=== PATIENT | male | born 1965 | race Caucasian/White ===

== ENCOUNTER 2020-04-08 10:53 | Emergency (ER) | payer BC, OTHER ==
[~2020-04-08] VITALS: Ht 172.7 cm; Wt 105.3 kg
[2020-04-08] MEDS ORDERED: RT-ALBUINH IH (11:30)
[2020-04-08] MEDS ORDERED: DEXA6TAB PO (11:30)
[2020-04-08] MEDS ORDERED: IVER3TAB2 PO (11:30)
--- NOTE | 2020-04-08 11:33 | ED Cough/URI ---
General Chief Complaint: Respiratory Problems Stated Complaint: SOB; COVID+ Nursing Triage Note: Patient reports COVID positive since rapid test by employer at [facility] last Monday. Sx: loss of taste/smell, diarrhea, fatigue, and cough. Pt feels deep breathing increasing his cough x 2 days with sats decreasing today to low 90's. Sepsis Screen: No Definite Risk History of Present Illness Date Seen by Provider: Apr 08, 2020 Time Seen by Provider: 11:20 Initial Comments 54-year-old male presents with complaint of cough and intermittent shortness of air. History of present illness, patient began to feel sick one week ago with body aches, chills and 5 days ago was tested for COVID-19 and has been on home quarantine since then. Is not on any medication and has not seen a doctor. States that when he takes a deep breath he has a sensation that he has to cough. Denies history of lung or heart disease. Some intermittent nausea and some loose stools, no fever. Allergies and Home Medications Allergies Coded Allergies: metoclopramide (Unverified Adverse Reaction, Intermediate, heart palpitation, 04/08/20) Home Medications Albuterol Sulfate 1 Puff Puff, 2 PUFF IH Q4H 1 PUFF = 90 MCG Prescribed by: SILKE TURCIOS on 04/08/20 1130 Dexamethasone 6 Mg Tablet, 6 MG PO DAILY Prescribed by: SILKE TURCIOS on 04/08/20 1130 Ivermectin 3 Mg Tablet, 3 MG PO PD take 7 tablets po today, then 7 tablets po in 3 days Prescribed by: SILKE TURCIOS on 04/08/20 1130 Patient Home Medication List Home Medication List Reviewed: Yes Review of Systems Review of Systems Constitutional: No chills, No dizziness, No fever; malaise EENTM: no symptoms reported Respiratory: cough; No hemoptysis, No orthopnea, No phlegm; short of breath; No stridor, No wheezing Cardiovascular: No chest pain, No edema, No palpitations, No syncope Gastrointestinal: No abdominal pain, No constipation; diarrhea; No loss of appetite; nausea; No vomiting Musculoskeletal: No back pain, No joint pain, No muscle pain, No muscle stiffness, No muscle cramps Skin: No change in color, No lesions Past Hkmazzq-Hviqco-Qztiba Hx Past Med/Social Hx: Reviewed Nursing Past Med/Soc Hx Patient Social History Alcohol Use: Denies Use Recreational Drug Use: No Smoking Status: Never a Smoker 2nd Hand Smoke Exposure: No Recent Foreign Travel: No Contact w/Someone Who Travel: No Recent Infectious Disease Expo: No Recent Hopitalizations: No Immunizations Up To Date Date of Influenza Vaccine: Jan 09, 2020 Seasonal Allergies Seasonal Allergies: No Past Medical History Surgeries: No Respiratory: No Cardiac: Yes High Cholesterol, Hypertension Neurological: No Genitourinary: Yes Benign Prostatic Hyperpl Gastrointestinal: No Musculoskeletal: No Endocrine: Yes Hypothyroidsim HEENT: No Cancer: No Psychosocial: No Integumentary: No Blood Disorders: No Physical Exam Vital Signs - First Documented 04/08/20 11:00 Temp 36.3 Pulse 100 Resp 20 B/P (MAP) 159/90 (113) Pulse Ox 92 O2 Delivery Room Air Capillary Refill : Less Than 3 Seconds Height: '" Weight: lbs. oz. kg; 35.00 BMI Method: General Appearance: WD/WN, no apparent distress HEENT: PERRL/EOMI, normal ENT inspection Neck: non-tender, supple Respiratory: chest non-tender, lungs clear, normal breath sounds Cardiovascular: regular rate, rhythm, no edema, no gallop, no JVD Gastrointestinal: non tender, soft Extremities: non-tender, no pedal edema Neurologic/Psychiatric: no motor/sensory deficits, alert, normal mood/affect, oriented x 3 Skin: normal color, warm/dry Progress/Results/Core Measures Suspected Sepsis Recent Fever Within 48 Hours: No Infection Criteria Present: Documented Infection New/Unexplained Altered Menta: No Sepsis Screen: No Definite Risk SIRS Temperature: Pulse: 100 Respiratory Rate: 20 Blood Pressure 159 /90 Mean: 113 Results/Orders Vital Signs/I&O 04/08/20 11:00 Temp 36.3 Pulse 100 Resp 20 B/P (MAP) 159/90 (113) Pulse Ox 92 O2 Delivery Room Air Capillary Refill : Less Than 3 Seconds Blood Pressure Mean: 113 Progress Note : Progress Note Patient no acute distress, normal vital signs with oxygen saturations 92 percent or greater. Exam without any respiratory distress, wheezing or rhonchi. Discussed outpatient treatment, including ivermectin, albuterol and dexamethasone as well as advised to take vitamin C, vitamin D and zinc. Patient agrees and understands. Also advised follow-up the ER if his symptoms progress or hes having greater difficulty breathing. Departure Impression Primary Impression: COVID-19 Disposition: 01 HOME, SELF-CARE Condition: Stable Departure-Patient Inst. Decision time for Depature: 11:27 Referrals: NO,LOCAL PHYSICIAN (PCP) Primary Care Physician [facility] Patient Instructions: Coronavirus Disease 2019 (COVID-19) (DC) Add. Discharge Instructions: You are also advised to take the following for one month: Vitamin C 1000mg daily Vitamin D 4000iu daily Zinc 100mg daily if no allergies, intolerance or contraindication, take a full Aspirin -325mg daily for 2 weeks. All discharge instructions reviewed with patient and/or family. Voiced understanding. Scripts Dexamethasone (Dexamethasone) 6 Mg Tablet 6 MG PO DAILY for 7 Days, #7 TAB Prov: SILKE TURCIOS DO 04/08/20 Albuterol Sulfate (PROAIR HFA) 1 Puff Puff 2 PUFF IH Q4H for Cough, #1 PUFF 1 Refill 1 PUFF = 90 MCG Prov: SILKE TURCIOS DO 04/08/20 Ivermectin (Ivermectin) 3 Mg Tablet 3 MG PO PD, #14 TAB take 7 tablets po today, then 7 tablets po in 3 days Prov: SILKE TURCIOS DO 04/08/20 SILKE TURCIOS DO Apr 08, 2020 11:33
[2020-04-08] MEDS ORDERED: Metformin (11:45)
[2020-04-08] MEDS ORDERED: Lisinopril (11:46)
[2020-04-08] MEDS ORDERED: Vitamin B (11:46)
[2020-04-08] MEDS ORDERED: Vitamin D (11:46)
[2020-04-08 12:00] VITALS: BP 151/80
== END 2020-04-08 12:00 | disposition home or self-care (01) ==
LOC: ER FS 10:56
DX: U07.1 COVID-19 (principal); Z88.8 Allergy status to other drugs, medicaments and biological substances
CPT/HCPCS: 99282

== ENCOUNTER 2021-02-05 19:06 | Emergency (ER) | payer BC ==
[~2021-02-05] VITALS: Ht 175 cm; Wt 106.1 kg
[~2021-02-05 19:06] MED LIST: DEXA6TAB PO; IVER3TAB2 PO; Lisinopril; Metformin; RT-ALBUINH IH; Vitamin B; Vitamin D
[2021-02-05] MEDS ORDERED: ORPHENADRINE 60 MG/2 ML (NORFLEX) AMP (ED ONLY) IM STA (19:21)
[2021-02-05] MEDS ORDERED: KETOROLAC 60 MG/2 ML VIAL IM STA (19:21)
[2021-02-05 19:27] LABS: CLARITY,URINE CLOUDY; COLOR,URINE YELLOW
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
[2021-02-05 19:31] LABS: BACTERIA,URINE LARGE /HPF; BILIRUBIN,URINE NEGATIVE (NEGATIVE); GLUCOSE, URINE (UA) 3+ (NEGATIVE); KETONES,URINE 1+ (NEGATIVE); LEUKOCYTE ESTERASE ,URINE TRACE (NEGATIVE); NITRITE,URINE NEGATIVE (NEGATIVE); PH,URINE 6.5 (5-9); PROTEIN,URINE NEGATIVE (NEGATIVE); WBC,URINE 25-50 /HPF
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
[2021-02-05] MEDS ORDERED: ACHD5005 PO (20:45)
[2021-02-05] MEDS ORDERED: METH-731 PO (20:45)
[2021-02-05] MEDS ORDERED: LEVO500T80 PO (20:45)
[2021-02-05] MEDS ORDERED: NAPR-1070 PO (20:45)
[2021-02-05 20:55] VITALS: BP 147/80
== END 2021-02-05 20:55 | disposition home or self-care (01) ==
LOC: EDUNIT# 19:06 → ER FS 19:07
DX: S16.1XXA Strain of muscle, fascia and tendon at neck level, initial encounter (principal); S29.012A Strain of muscle and tendon of back wall of thorax, initial encounter; S39.012A Strain of muscle, fascia and tendon of lower back, initial encounter; N30.00 Acute cystitis without hematuria; N13.30 Unspecified hydronephrosis; N32.0 Bladder-neck obstruction; R51.9 Headache, unspecified; E66.9 Obesity, unspecified; I10 Essential (primary) hypertension; Z68.35 Body mass index [BMI] 35.0-35.9, adult; Z79.899 Other long term (current) drug therapy; V89.2XXA Person injured in unspecified motor-vehicle accident, traffic, initial encounter
CPT/HCPCS: 70450; 70486; 71250; 72125; 74176; 81000; 87077; 87088; 87186